=== PATIENT | female | born 1975 | race Two or more races ===

== ENCOUNTER 2023-08-10 20:28 | Emergency (ER) | payer MEDICAID ==
[~2023-08-10] VITALS: Ht 157.5 cm; Wt 65.1 kg
[2023-08-10] MEDS: ASPirin 81 mg TAB PO ONE (21:30)
[2023-08-10 22:12] LABS: Basophils # (auto) 0 10 ^3/uL (0-0.2); Basophils % (auto) 0.4 % (0.0-2.0); Eosinophils # (auto) 0.1 10 ^3/uL (0-0.8); Eosinophils % (auto) 0.9 % (0.0-7.0); Hematocrit 41.3 % (36.0-46.0); Hemoglobin 13.7 g/dL (12.2-16.2); Lymphocytes % (auto) 32.5 % (10.0-50.0); Mean Corpuscular Hemoglobin 30.7 pg (28.0-32.0); Mean Corpuscular Hgb Conc. 33.2 g/dL (32.0-36.0); Mean Corpuscular Volume 92.3 fL (80.0-100.0); Monocytes # (auto) 0.5 10 ^3/uL (0-1.3); Monocytes % (auto) 5.1 % (0.0-12.0); Neutrophils # (auto) 5.7 10 ^3/uL (1.6-8.6); Neutrophils % (auto) 61.1 % (37.0-80.0); Nucleated Red Blood Cells % 0.1 %; Red Blood Cells 4.47 10^6/uL (4.0-5.20); Red Cell Distribution Width 13.2 % (11.8-14.3); White Blood Cell 9.3 10^3/uL (4.4-10.8)
[2023-08-10 22:19] LABS: Alanine Aminotransferase 12 U/L (7-40); Albumin 4.9 g/dL (3.2-4.8); Alkaline Phosphatase 72 U/L (46-116); Anion Gap 7 (5-15); Aspartate Aminotransferase 10 U/L (13-40); Bilirubin, Total 0.6 mg/dL (0.2-1.0); Calcium 9.1 mg/dL (8.7-10.4); Carbon Dioxide 25 mmol/L (20-30); Chloride 106 mmol/L (98-107); Glucose 118 mg/dL (74-106); Lipase 44 U/L (12-53); Magnesium 2.2 mg/dL (1.6-2.6); Potassium 3.7 mmol/L (3.5-5.1); Sodium 138 mmol/L (136-145); Total Protein 7.6 g/dL (5.7-8.2)
[2023-08-10 22:40] LABS: BUN/Creatinine Ratio 9.1 (10.0-20.0); Blood Urea Nitrogen < 5 mg/dL (9-23)
[2023-08-11] MEDS: IOHEXOL 350 MG/ML 100ML IJ ONE (03:46)
[2023-08-11 04:02] LABS: Urine Bacteria NONE SEEN /hpf (None Seen); Urine Blood Negative /uL (Negative); Urine Clarity Clear (Clear); Urine Color Yellow (Yellow); Urine Protein, UAD TRACE (Negative); Urine Urobilinogen Normal (Negative); Urine WBC 1 /hpf (0 - 5); Urine pH 6.5 (5.0-8.0)
[2023-08-11 04:05] LABS: Urine Specific Gravity > 1.050 (1.001-1.035)
[2023-08-11] MEDS: KETOROLAC TROMETH 30 MG/ML 1ML VIAL IV ONE (07:32)
[2023-08-11] MEDS: SODIUM CHLORIDE 0.9% 1,000 ML IVB ONE (07:32)
[2023-08-11] MEDS: ONDANSETRON HCL 4 MG/2 ML VIAL IV ONE (07:32)
[2023-08-11 07:45] VITALS: BP 125/69; PULSE 71; RESP 16; TEMP 98; O2SAT 96
== END 2023-08-11 08:41 | disposition home or self-care (01) ==
LOC: ER 20:28
DX: R10.32 Left lower quadrant pain (principal); R10.2 Pelvic and perineal pain; R07.89 Other chest pain; Z79.899 Other long term (current) drug therapy
CPT/HCPCS: 36415; 71045; 74177; 80053; 81001; 83605; 83690; 83735; 84484; 84702; 85025; 87040; 87086; 96361; 96374; 96375; 99285; J1885; J2405; J7030; Q9967

== ENCOUNTER 2024-07-02 08:41 | Inpatient (IN) | payer MEDICAID ==
[~2024-07-02] VITALS: Ht 157.5 cm; Wt 67.6 kg
--- NOTE | 2024-07-02 09:36 | ED.PDOC ---
HPI (NEURO) HPI Comments 49 y.o female presents to the ED for a chief complaint of left sided arm and face numbness associated with left sided chest pressure that started 6 days ago but has progressively worsened. Patient reports symptoms started intermittently but last night became constant up until this morning, Patient denies slurred speech, focal weaknesses, vision changes, SOB, nausea, vomiting, or dizziness. Patient is able to ambulate without assistance. She denies any medical, surgical history or allergies. No substance, alcohol or tobacco use reported. Chief Complaint: Face pain Time Seen by MD: 09:13 Primary Care Provider: DARRION Reviewed Notes: Nurses Notes, Medications, Allergies Information Source: Patient Mode of Arrival: Ambulatory Severity: Moderate Timing: Days (6) Duration: Since onset Numbness Location: (L) Arm, Facial Onset: At rest Circumstances: Spontaneous Symptoms: Numbness History of: None Associated Signs and Symptoms: Chest Pain, Chest Pain, Numbness Past Medical History PAST MEDICAL HISTORY: Denies Surgical History: Denies all surgeries RESEARCH/PROGRAM DIRECTOR History: No Pertinent RESEARCH/PROGRAM DIRECTOR History Family History Family History: Unobtainable Social History Smoker: Non-Smoker Alcohol: Denies ETOH Use Drugs: Denies Drug Use Lives In: Home Constitutional: denies: chills, diaphoresis, fatigue, fever, malaise, sweats, weakness, others EENTM: denies: blurred vision, double vision, ear bleeding, ear discharge, ear drainage, ear pain, ear ringing, eye pain, eye redness, hearing loss, mouth pain, mouth swelling, nasal discharge, nose bleeding, nose congestion, nose pain, photophobia, tearing, throat pain, throat swelling, voice changes, others Respiratory: denies: cough, hemoptysis, orthopnea, SOB at rest, shortness of breath, SOB with excertion, stridor, wheezing, others Cardiovascular: reports: chest pain; denies: dizzy spells, diaphoresis, Dyspnea on exertion, edema, irregular heart beat, left arm pain, lightheadedness, palpitations, PND, syncope, others Gastrointestinal: denies: abdomen distended, abdominal pain, blood streaked bowels, constipated, diarrhea, dysphagia, difficulty swallowing, hematemesis, melena, nausea, poor appetite, poor fluid intake, rectal bleeding, rectal pain, vomiting, others Genitourinary: denies: abnormal vagina bleeding, burning, dyspareunia, dysuria, flank pain, frequency, hematuria, incontinence, pain, , vagina discharge, urgency, others Neurological: reports: numbness (left sided arm and face ); denies: dizziness, fainting, headache, left sided numbness, left sided weakness, paresthesia, pre- existing deficit, right sided numbness, right sided weakness, seizure, speech problems, tingling, tremors, weakness, others Musculoskeletal: denies: back pain, gout, joint pain, joint swelling, muscle pain, muscle stiffness, neck pain, others Integumetry: denies: bruises, change in color, change in hair/nails, dryness, laceration, lesions, lumps, rash, wounds, others Allergic/Immunocompromised: denies: Difficulty Healing, Frequent Infections, Hives, Itching, others Hematologic/Lymphatic: denies: anemia, blood clots, easy bleeding, easy bruising, swollen glands, others Endocrine: denies: excessive hunger, excessive sweating, excessive thirst, excessive urination, flushing, intolerance to cold, intolerance to heat, unexplained weight gain, unexplained weight loss, others Psychiatric: denies: anxiety, bipolar disorder, depression, hopeless, panic disorder, schizophrenia, sleepless, suicidal, others All Other Systems: Reviewed and Negative Physical Exam General Appearance: Moderate Distress HEENT: Normal ENT Inspection, Pharynx Normal, TMs Normal Neck: Full Range of Motion, Non-Tender, Normal, Normal Inspection Respiratory: Chest Non-Tender, Lungs Clear, No Accessory Muscle Use, No Respiratory Distress, Normal Breath Sounds Cardiovascular: No Edema, No JVD, No Murmur, No Gallop, Normal Peripheral Pulses, Regular Rate/Rhythm Breast Exam: Deferred Gastrointestinal: No Organomegaly, Non Tender, No Pulsatile Mass, Normal Bowel Sounds, Soft Genitalia: Deferred Pelvic: Deferred Rectal: Deferred Extremities: No calf tenderness, Normal capillary refill, Normal inspection, Normal range of motion, Non-tender, No pedal edema Musculoskeletal : Apperance: Normal Neurologic: Alert, supervisor refractory products II-XII nml as Tested, No Motor Deficits, Normal Affect, Normal Mood, No Sensory Deficits Cerebellar Function: Normal Reflexes: Normal Skin: Dry, Normal Color, Warm Peripheral Pulses: 3+ Radial (R), 3+ Radial (L) Lymphatic: No Adenopathy Was a procedure done? Was a procedure done?: No Differential Diagnosis (SZ) Seizure: Psychogenic Seizure, Closed Head Injury, CVA/TIA CVA: Tobias's Palsy, Delirium Tremens, Electrolyte Imbalance, Hypoglycemia, TIA X-Ray, Labs, Meds, VS Vital Signs Date Time Temp Pulse Resp B/P (MAP) Pulse Ox O2 Delivery O2 Flow Rate FiO2 07/02/24 10:00 77 07/02/24 10:00 97.7 77 18 151/94 (113) 98 97.7 07/02/24 09:00 85 07/02/24 08:58 99.0 84 18 153/90 (111) 98 Lab Test 07/02/24 10:08 07/02/24 09:14 Range/Units Urine Color Light-yellow Yellow Urine Clarity Clear Clear Urine pH 6.0 5.0-9.0 Urine Specific [place] 1.009 1.001-1.035 Urine Protein Negative Negative Urine Ketones Negative Negative Urine Blood Negative Negative /uL Urine Nitrite Negative Negative Urine Bilirubin Negative Negative Urine Urobilinogen Normal Negative mg/dL Urine Leukocyte Esterase Negative Negative /uL Urine RBC 2 0 - 4 /hpf Urine WBC 1 0 - 5 /hpf Urine Squamous Epithelial Cells Few <5 /hpf Urine Bacteria None seen None Seen /hpf Urine Glucose Normal Normal mg/dL White Blood Count 5.8 4.4-10.8 10^3/uL Red Blood Count 4.43 4.0-5.20 10^6/uL Hemoglobin 13.9 12.2-16.2 g/dL Hematocrit 40.8 36.0-46.0 % Mean Corpuscular Volume 92.1 80.0-100.0 fL Mean Corpuscular Hemoglobin 31.3 28.0-32.0 pg Mean Corpuscular Hemoglobin Concent 34.0 32.0-36.0 g/dL Red Cell Distribution Width 12.9 11.8-14.3 % Platelet Count 292 140-450 10^3/uL Mean Platelet Volume 8.6 6.9-10.8 fL Neutrophils (%) (Auto) 58.8 37.0-80.0 % Lymphocytes (%) (Auto) 35.5 10.0-50.0 % Monocytes (%) (Auto) 4.9 0.0-12.0 % Eosinophils (%) (Auto) 0.5 0.0-7.0 % Basophils (%) (Auto) 0.3 0.0-2.0 % Neutrophils # (Auto) 3.4 1.6-8.6 10 ^3/uL Lymphocytes # (Auto) 2.1 0.4-5.4 10 ^3/uL Monocytes # (Auto) 0.3 0-1.3 10 ^3/uL Eosinophils # (Auto) 0 0-0.8 10 ^3/uL Basophils # (Auto) 0 0-0.2 10 ^3/uL Nucleated Red Blood Cells 0.0 % Sodium Level 140 136-145 mmol/L Potassium Level 3.3 L 3.5-5.1 mmol/L Chloride Level 104 98-107 mmol/L Carbon Dioxide Level 25 20-31 mmol/L Anion Gap 11 5-15 Blood Urea Nitrogen 10 9-23 mg/dL Creatinine 0.76 0.550-1.02 mg/dL Glomerular Filtration Rate Calc 97 >90 mL/min BUN/Creatinine Ratio 13.2 10.0-20.0 Serum Glucose 161 H 74-106 mg/dL Calcium Level 10.0 8.7-10.4 mg/dL Troponin I High Sensitivity 4 </=34 ng/L Patient alert. Complaining of chest discomfort. EKG reviewed does not show any acute changes. Vitals stable. Blood sugar slightly elevated. Was told to drink plenty of fluids. WBC within normal limits. Hemoglobin within normal limits. Blood pressure slightly elevated. Continues to have chest discomfort. Has risk factors for coronary artery disease. Explained to the patient. Was given aspirin. Was given nitro. Continue cardiac monitoring. Time of 1ST Reevaluation: 09:34 Reevaluation 1ST: Unchanged Patient Education/Counseling: Diagnosis, Treatment, Prognosis Family Education/Counseling: No Family Present Additional Information I reviewed the following notes from patient's past medical encounters: 08/15/23- abdominal pain The following tests were ordered, and results were reviewed by me: LAB; Troponin x1, UA, CMP, CBC Additional Information was gathered from interviewing the following independent historians: None I reviewed and agreed with the following test results read by other providers: None I discussed treatment and results with medical personnel Departure 1 Departure Time of Disposition: 11:23 Impression: Primary Impression: Chest pain of unknown etiology Additional Impressions: HTN (hypertension) Qualified Codes: I10 - Essential (primary) hypertension Uncontrolled diabetes mellitus Qualified Codes: E13.65 - Other specified diabetes mellitus with hyperglycemia Disposition: ADMITTED INPATIENT Admit to: Med Surg Condition: Guarded Critical Care Note Critical Care Time?: Yes (45 min-critical care time only) Stability Stability form required: No Heart Score Heart Score: Heart Score Response (Comments) Value History Slightly Suspicious 0 EKG Normal 0 Age 45-64 1 Risk Factors 1 or 2 risk factors 1 Troponin Normal limit 0 Total 2 I personally scribed for ROYAL BETTS MD ([email or web address]) on 07/02/24 at 09:36. Electronically submitted by Vidhya Lobato ([facility]). ROYAL BETTS MD Jul 02, 2024 09:36
[2024-07-02 10:09] LABS: Urine Bacteria None Seen /hpf (None Seen)
[2024-07-02 10:44] LABS: Basophils # (auto) 0 10 ^3/uL (0-0.2); Basophils % (auto) 0.3 % (0.0-2.0); Eosinophils # (auto) 0 10 ^3/uL (0-0.8); Eosinophils % (auto) 0.5 % (0.0-7.0); Hematocrit 40.8 % (36.0-46.0); Hemoglobin 13.9 g/dL (12.2-16.2); Lymphocytes # (auto) 2.1 10 ^3/uL (0.4-5.4); Lymphocytes % (auto) 35.5 % (10.0-50.0); Mean Corpuscular Hemoglobin 31.3 pg (28.0-32.0); Mean Corpuscular Volume 92.1 fL (80.0-100.0); Monocytes # (auto) 0.3 10 ^3/uL (0-1.3); Monocytes % (auto) 4.9 % (0.0-12.0); Neutrophils # (auto) 3.4 10 ^3/uL (1.6-8.6); Neutrophils % (auto) 58.8 % (37.0-80.0); Platelet Count (auto) 292 10^3/uL (140-450); Red Blood Cells 4.43 10^6/uL (4.0-5.20); Red Cell Distribution Width 12.9 % (11.8-14.3); White Blood Cell 5.8 10^3/uL (4.4-10.8)
[2024-07-02 10:54] LABS: Chloride 104 mmol/L (98-107); Sodium 140 mmol/L (136-145)
[2024-07-02 10:55] LABS: Urine Blood Negative /uL (Negative); Urine Clarity Clear (Clear); Urine Color Light-Yellow (Yellow); Urine Protein, UAD Negative (Negative); Urine Specific Gravity 1.009 (1.001-1.035); Urine Squamous Epithelial Cell FEW /hpf (<5); Urine Urobilinogen Normal (Negative); Urine WBC 1 /hpf (0 - 5)
[2024-07-02 10:55] LABS: Anion Gap 11 (5-15); Carbon Dioxide 25 mmol/L (20-31)
[2024-07-02 11:00] LABS: BUN/Creatinine Ratio 13.2 (10.0-20.0); Blood Urea Nitrogen 10 mg/dL (9-23)
[2024-07-02 11:09] LABS: Glucose 161 mg/dL (74-106); Potassium 3.3 mmol/L (3.5-5.1)
[2024-07-02] MEDS: ASPirin 325 MG TAB PO ONE (12:19)
[2024-07-02] MEDS: NITROGLYCERIN 0.4 MG SL TAB SL ONE (12:20)
[2024-07-02] MEDS ORDERED: ONDANSETRON HCL 4 MG/2 ML VIAL IV PRN (12:30)
[2024-07-02] MEDS ORDERED: MORPHINE SULFATE INJ 2 MG/ml SYRG IV PRN (12:30)
[2024-07-02] MEDS ORDERED: NITROGLYCERIN 0.4 MG SL TAB SL PRN ×2 (12:30)
[2024-07-02] MEDS ORDERED: MORPHINE SULFATE 4 MG/ML SYR/VIAL IV PRN (12:30)
[2024-07-02] MEDS ORDERED: DEXTROSE (50%) 50ML SYRG IV PRN (12:45)
--- NOTE | 2024-07-02 12:45 | DVHHP2 ---
History of Present Illness Reason for Visit: Chest pain, face pain, left arm numbness and tingling History of Present Illness Mari Peralta is a 49-year-old female with no past medical history who presents to the ED today for face pain, chest pain, left arm pain and numbness x6 days. Patient reports that the pain is 6/10, is intermittent, is pressure- like in her chest and reports left arm and face tingling and numbness. Patient states that the pain has gotten progressively worse. Patient reports that she has not taken any pain medications at home also denies any recent trauma or injury. Patient denies drinking, smoking, illicit drug use, no surgical history, and no medical history. Patient reports that her primary advised her to watch her diet specifically sugars and fats because she is borderline. Patient denies shortness of breath, abdominal pain, nausea, vomiting, diarrhea, lightheadedness, dizziness, and headaches. Past Surgical History: None Family History: None Smoke: No ALCOHOL: none Drugs: None Lives: with Family Domestic Violence: Neg Review of Systems Constitutional: No: Fever, Chills, Sweats, Weakness, Malaise, Other Eyes: No: Pain, Vision change, Conjunctivae inflammation, Eyelid inflammation, Other, Redness ENT: No: Ear pain, Ear discharge, Nose pain, Nose discharge, Nose congestion, Mouth pain, Mouth swelling, Throat pain, Throat swelling, Other Respiratory: No: Cough, Dry, Shortness of breath, SOB with excertion, Wheezing, Hemoptysis, Pleuritic Pain, Sputum, Wheezing, Other Cardiovascular: No: Chest Pain, Palpitations, Orthopnea, Paroxysmal Noc. Dyspnea, Edema, Lt Headedness, Other Gastrointestinal: No: Nausea, Vomiting, Abdominal Pain, Diarrhea, Constipation, Melena, Hematochezia, Other Genitourinary: No Dysuria, No Frequency, No Incontinence, No Hematuria, No Retention, No Other Musculoskeletal: arm pain; No: other, neck pain, shoulder pain, back pain, hand pain, leg pain, foot pain Skin: No: Rash, Lesions, Jaundice, Bruising, Other Neurological: No: Weakness, Numbness, Incoordination, Change in speech, Confusion, Seizures, Other Other Left face pain Allergies: Coded Allergies: NO KNOWN ALLERGIES (Unverified , 02/03/13) Medications Current Medications Medications Dose Ordered Sig/Willam Route Start Time Stop Time Status Last Admin Dose Admin Hydralazine HCl 10 mg Q6HP PRN IV 07/02/24 12:30 UNV Aspirin 81 mg DAILY PO 07/03/24 10:00 UNV Atorvastatin Calcium 40 mg HS PO 07/02/24 22:00 UNV Morphine Sulfate 2 mg Q30MP PRN IV 07/02/24 12:30 UNV Acetaminophen 650 mg Q6HP PRN PO 07/02/24 12:30 UNV Nitroglycerin 0.4 mg Q5MINP PRN SL 07/02/24 12:30 UNV Ondansetron HCl 4 mg Q4HP PRN IV 07/02/24 12:30 UNV Nitroglycerin 0.4 mg Q5MINP PRN SL 07/02/24 12:30 UNV Exam Vital Signs Vital Signs Date Time Temp Pulse Resp B/P (MAP) Pulse Ox O2 Delivery O2 Flow Rate FiO2 07/02/24 12:20 154/91 07/02/24 12:20 90 20 98 07/02/24 10:00 97.7 97.7 General Appearance: Alert, Oriented X3, Cooperative, No acute distress HEENT: Atraumatic, PERRLA, EOMI, Mucous membr. moist/pink Respiratory: Clear to auscultation, Normal air movement Cardiovascular: Regular rate, Normal S1, Normal S2, No murmurs Abdominal: Normal bowel sounds, Soft, No tenderness, No hepatospenomegaly, No masses Extremities: No clubbing, No cyanosis, No edema, Normal pulses, No tenderness/swelling Skin: No rashes, No breakdown, No significant lesion Neuro: Normal gait, Normal speech, Strength at 5/5 X4 ext, Normal tone, Sensation intact Psych/Mental Status: Mental status NL, Mood NL Labs/Xrays Labs Test 07/02/24 10:08 07/02/24 09:14 Range/Units Urine Color Light-yellow Yellow Urine Clarity Clear Clear Urine pH 6.0 5.0-9.0 Urine Specific [place] 1.009 1.001-1.035 Urine Protein Negative Negative Urine Ketones Negative Negative Urine Blood Negative Negative /uL Urine Nitrite Negative Negative Urine Bilirubin Negative Negative Urine Urobilinogen Normal Negative mg/dL Urine Leukocyte Esterase Negative Negative /uL Urine RBC 2 0 - 4 /hpf Urine WBC 1 0 - 5 /hpf Urine Squamous Epithelial Cells Few <5 /hpf Urine Bacteria None seen None Seen /hpf Urine Glucose Normal Normal mg/dL White Blood Count 5.8 4.4-10.8 10^3/uL Red Blood Count 4.43 4.0-5.20 10^6/uL Hemoglobin 13.9 12.2-16.2 g/dL Hematocrit 40.8 36.0-46.0 % Mean Corpuscular Volume 92.1 80.0-100.0 fL Mean Corpuscular Hemoglobin 31.3 28.0-32.0 pg Mean Corpuscular Hemoglobin Concent 34.0 32.0-36.0 g/dL Red Cell Distribution Width 12.9 11.8-14.3 % Platelet Count 292 140-450 10^3/uL Mean Platelet Volume 8.6 6.9-10.8 fL Neutrophils (%) (Auto) 58.8 37.0-80.0 % Lymphocytes (%) (Auto) 35.5 10.0-50.0 % Monocytes (%) (Auto) 4.9 0.0-12.0 % Eosinophils (%) (Auto) 0.5 0.0-7.0 % Basophils (%) (Auto) 0.3 0.0-2.0 % Neutrophils # (Auto) 3.4 1.6-8.6 10 ^3/uL Lymphocytes # (Auto) 2.1 0.4-5.4 10 ^3/uL Monocytes # (Auto) 0.3 0-1.3 10 ^3/uL Eosinophils # (Auto) 0 0-0.8 10 ^3/uL Basophils # (Auto) 0 0-0.2 10 ^3/uL Nucleated Red Blood Cells 0.0 % Sodium Level 140 136-145 mmol/L Potassium Level 3.3 L 3.5-5.1 mmol/L Chloride Level 104 98-107 mmol/L Carbon Dioxide Level 25 20-31 mmol/L Anion Gap 11 5-15 Blood Urea Nitrogen 10 9-23 mg/dL Creatinine 0.76 0.550-1.02 mg/dL Glomerular Filtration Rate Calc 97 >90 mL/min BUN/Creatinine Ratio 13.2 10.0-20.0 Serum Glucose 161 H 74-106 mg/dL Calcium Level 10.0 8.7-10.4 mg/dL Troponin I High Sensitivity 4 </=34 ng/L Assessment/Plan Assessment/Plan Assessment/Plan: Atypical chest pain r/o ACS UA Nitro given in ER Aspirin given in ER Troponins negative EKG Echo UDS TSH Lipid panel ACS protocol Aspirin Statin Antihypertensive Chest x-ray Labs A.m. labs EKG a.m. Antiemetics Pain management Hyperglycemia Hemoglobin A1c ISS and Accu-Cheks Hypokalemia Replete lytes FEN/PPX cardiac diet hl DVT prophylaxis not indicated patient ambulating PUD prophylaxis not indicated patient no history of GERD or GI bleed No Home medications reconciled Discussed plan of care with patient and nurse Admit to tele Plan discussed with: Patient My Orders Orders - DARRELL LUCAS [place] AERONAUTICAL RESEARCH ENGINEER Procedure Category Date Status Time Chest Xray 1 View XY 07/02/24 Logged 12:21 Hydralazine Injection PHA 07/02/24 Logged (Apresoline Inject 12:30 Thyroid Stimulating LAB 07/02/24 Transmitted Hormone 12:22 Lipid Panel LAB 07/02/24 Transmitted 12:22 Drug Screen LAB 07/02/24 Transmitted 12:22 Echo 2d Mode Cardiac US 07/02/24 Logged DOP 12:22 Admit ADMIT 07/02/24 Transmitted 12:22 Code Status CODE 07/02/24 Transmitted 12:22 Vital Signs JER 07/02/24 In Process 12:22 Landscape Architecture Teacher JER 07/02/24 In Process 12:22 Cardiac DIET 07/02/24 Transmitted Diet-2gna,Lofat,Lochol Lunch Aspirin Tablet PHA 07/03/24 Logged 10:00 Atorvastatin (Lipitor) PHA 07/02/24 Logged 22:00 Morphine Sulfate PHA 07/02/24 Logged Injection 12:30 Acetaminophen Tablet PHA 07/02/24 Logged (Tylenol Tablet) 12:30 Complete Blood Count LAB 07/03/24 Verified 04:00 Comprehensive LAB 07/03/24 Verified Metabolic Panel 04:00 Nitroglycerin PHA 07/02/24 Logged Sublingual (Ntrostat 12:30 Ondansetron Hcl PHA 07/02/24 Logged (Zofran) 12:30 Electrocardigram EKG 07/03/24 Logged 04:00 Troponin-I Hs LAB 07/02/24 Transmitted 12:22 Cardiac JER 07/02/24 Transmitted Rehabilitation - Outpa Nitroglycerin PHA 07/02/24 Transmitted Sublingual (Ntrostat 12:30 Morphine Sulfate PHA 07/02/24 Transmitted Injection 12:30 Stat Ekg For Chest [facility] 07/02/24 Transmitted Pain 12:22 Notify Md Of Changes [facility] 07/02/24 Transmitted From Base 12:22 Rn Digestive For [facility] 07/02/24 Transmitted 24 Hours 12:22 Emergency Dysrhythmia [facility] 07/02/24 Transmitted Protocol 12:22 Rhythm Strips Once [facility] 07/02/24 Transmitted Every Shift 12:22 Oxygen By Nasal RT 07/02/24 Transmitted Cannula 12:22 Potassium Er Tablet [facility] 07/02/24 Transmitted (Klor-Con Tablet) 12:30 Date of Service: Jul 02, 2024 Billing Provider: DARRELL LUCAS Common Visit Codes: [id number] INP/OBS CARE (HIGH) DARRELL LUCAS Jul 02, 2024 12:45
--- NOTE | 2024-07-02 13:26 | DVH ---
EXAM: XY CHEST XRAY 1 VIEW TECHNIQUE: Single frontal chest radiograph CLINICAL HISTORY: chest pain COMPARISON: XY CHEST PORTABLE on DOS: 08/10/23 Findings/Impression: Frontal chest radiograph demonstrates no acute osseous or superficial soft tissue abnormalities. The trachea is midline. The cardiac silhouette and mediastinum are within normal limits. No pneumothorax, pleural effusions, or consolidations.
[2024-07-02] MEDS: POTASSIUM CHL 20 Meq TABLET PO ONE (13:45)
[2024-07-02 13:48] VITALS: BP 168/94; PULSE 74; RESP 17; TEMP 98.3; O2SAT 99
[2024-07-02 14:19] LABS: Amphetamine Screen, Urine Neg (NEGATIVE); Barbiturate Scree,Urine Neg (NEGATIVE); Benzodiazephine Screen, Urine Neg (NEGATIVE); Cocaine Screen, Urine Neg (NEGATIVE); Opiate Scree,Urine Neg (NEGATIVE); Phencyclidine Screen, Urine Neg (NEGATIVE)
[2024-07-02 14:20] LABS: Cannabinoid Screen, Urine Neg (NEGATIVE)
[2024-07-02 14:22] LABS: LDL Cholesterol 91 mg/dL (< 100)
[2024-07-02 14:23] LABS: Cholesterol 148 mg/dL (< 200); HDL Cholesterol 54 mg/dL (40-59)
[2024-07-02 14:27] LABS: Triglycerides 151 mg/dL (< 150)
[2024-07-02] MEDS: hydrALAZINE HCL 20 MG/ML VL IV PRN (15:56)
[2024-07-02 17:01] VITALS: BP 168/94; PULSE 74; RESP 18; TEMP 98.3; O2SAT 97; O2SAT 99
[2024-07-02] MEDS: ACCU-CHEK COMFORT CURVE STRIP VI SCH (17:54)
[2024-07-02] MEDS: InsuLIN REG 1unit/0.01ml Soln (100units/ml) SC SCH (17:58)
[2024-07-02] MEDS: ACETAMINOPHEN 325 MG TAB PO PRN (20:43)
[2024-07-02] MEDS: ATORVASTATIN 20 MG TAB PO SCH (23:00)
[2024-07-03 01:14] VITALS: PULSE 87; RESP 16; O2SAT 96
[2024-07-03 04:32] LABS: Basophils # (auto) 0 10 ^3/uL (0-0.2); Basophils % (auto) 0.2 % (0.0-2.0); Eosinophils # (auto) 0 10 ^3/uL (0-0.8); Eosinophils % (auto) 0.5 % (0.0-7.0); Hematocrit 39.4 % (36.0-46.0); Hemoglobin 13.6 g/dL (12.2-16.2); Lymphocytes # (auto) 3.6 10 ^3/uL (0.4-5.4); Lymphocytes % (auto) 37.7 % (10.0-50.0); Mean Corpuscular Hemoglobin 31.5 pg (28.0-32.0); Mean Corpuscular Hgb Conc. 34.4 g/dL (32.0-36.0); Mean Corpuscular Volume 91.4 fL (80.0-100.0); Monocytes # (auto) 0.6 10 ^3/uL (0-1.3); Monocytes % (auto) 5.9 % (0.0-12.0); Neutrophils # (auto) 5.4 10 ^3/uL (1.6-8.6); Neutrophils % (auto) 55.7 % (37.0-80.0); Platelet Count (auto) 299 10^3/uL (140-450); Red Blood Cells 4.31 10^6/uL (4.0-5.20); Red Cell Distribution Width 12.9 % (11.8-14.3); White Blood Cell 9.7 10^3/uL (4.4-10.8)
[2024-07-03 04:50] LABS: Alanine Aminotransferase 18 U/L (7-40); Alkaline Phosphatase 69 U/L (46-116); Anion Gap 10 (5-15); BUN/Creatinine Ratio 14.3 (10.0-20.0); Blood Urea Nitrogen 10 mg/dL (9-23); Carbon Dioxide 25 mmol/L (20-31); Chloride 103 mmol/L (98-107); Potassium 3.8 mmol/L (3.5-5.1); Sodium 138 mmol/L (136-145)
[2024-07-03 04:51] LABS: Albumin 4.6 g/dL (3.2-4.8); Aspartate Aminotransferase 14 U/L (13-40); Bilirubin, Total 0.7 mg/dL (0.2-1.0); Glucose 112 mg/dL (74-106)
[2024-07-03 04:52] LABS: Total Protein 7.3 g/dL (5.7-8.2)
[2024-07-03 07:30] VITALS: PULSE 57
[2024-07-03 09:00] VITALS: BP 128/71; PULSE 90; RESP 16; TEMP 98.1; O2SAT 97
[2024-07-03] MEDS: ASPirin 81 mg TAB PO SCH (10:45)
[2024-07-03 13:35] VITALS: BP 129/84; PULSE 86; RESP 17; TEMP 98; O2SAT 93
--- NOTE | 2024-07-03 14:21 | DVHSR ---
APPROVED REPORT EXAM: LIMITED Two-dimensional and M-mode echocardiogram with Doppler and color Doppler. Blood Pressure: 122/74 mmHg INDICATION Chest Pain RISK FACTORS Height: 5' 2", Weight: 149 DIMENSIONS LVDd4.3 (3.8-5.7cm)LA (2D)3.6 (1.9-4.0cm)Aortic Root2.6 (2.0-3.7cm) LVDs2.9 (2.5-4.0cm)LA (MM) (1.9-4.0cm)Aortic Cusp Exc1.7 (1.5-2.0cm) EF (%) 60.0 (55-70%)Rt. Atrium3.0 (1.9-4.0cm)Asc. Aorta cm IVSd0.9 (0.7-1.1cm)RV (D) (1.8-2.4cm) PWd0.9 (0.7-1.1cm) Mitral Valve MitralMitral Stenosis E wave0.80m/sMV Mean GR.mmHg A wave0.80m/sMV Peak GR.mmHg E/A ratio1.02D MVAcm2 Aortic Valve Aortic ValveAortic Stenosis V11.00m/Katya Mean GR.5mmHg V21.40m/Katya Peak GR.9mmHg LVOT Diameter1.8 (1.8-2.4cm)Doppler AVA1.82cm2 Pulmonic Valve V20.90m/s LEFT VENTRICLE The left ventricle is normal size. There is normal left ventricular wall thickness. The left ventricle is normal in structure and function, LVEF is 65%. Normal diastolic function. Normal wall motion. RIGHT VENTRICLE The right ventricle is normal size. The right ventricular systolic function is normal. ATRIA The left atrial size is normal. The right atrium size is normal. MITRAL VALVE The mitral valve is grossly normal. There is no mitral valve regurgitation noted. PULMONIC VALVE The pulmonic valve is not well visualized. There is trace pulmonic valvular regurgitation. TRICUSPID VALVE The tricuspid valve is grossly normal. No tricuspid regurgitation. AORTIC VALVE The aortic valve is trileaflet. No aortic regurgitation is present. GREAT VESSELS The aortic root is normal size. PERICARDIAL EFFUSION No evidence of pericardial effusion. Other Information Quality : Technically LimitedRhythm : Technically limited study due to body habitus. Conclusion The left ventricle is normal size. There is normal left ventricular wall thickness. The left ventricl e is normal in structure and function, LVEF is 65%. Normal diastolic function. Normal wall motion. The right ventricular systolic function is normal. The left and right atrial size is normal. No significant valvular abnormalities. No evidence of pericardial effusion.
--- NOTE | 2024-07-03 16:19 | DVHDS2 ---
Discharge Summary Date of Admission Jul 02, 2024 at 12:22 Date of Discharge: Jul 03, 2024 Labs/Diagnostic Data: Laboratory Results Test 07/03/24 03:44 07/02/24 12:54 07/02/24 10:08 07/02/24 09:14 White Blood Count 9.7 10^3/uL (4.4-10.8) Red Blood Count 4.31 10^6/uL (4.0-5.20) Hemoglobin 13.6 g/dL (12.2-16.2) Hematocrit 39.4 % (36.0-46.0) Mean Corpuscular Volume 91.4 fL (80.0-100.0) Mean Corpuscular Hemoglobin 31.5 pg (28.0-32.0) Mean Corpuscular Hemoglobin Concent 34.4 g/dL (32.0-36.0) Red Cell Distribution Width 12.9 % (11.8-14.3) Platelet Count 299 10^3/uL (140-450) Mean Platelet Volume 8.2 fL (6.9-10.8) Neutrophils (%) (Auto) 55.7 % (37.0-80.0) Lymphocytes (%) (Auto) 37.7 % (10.0-50.0) Monocytes (%) (Auto) 5.9 % (0.0-12.0) Eosinophils (%) (Auto) 0.5 % (0.0-7.0) Basophils (%) (Auto) 0.2 % (0.0-2.0) Neutrophils # (Auto) 5.4 10 ^3/uL (1.6-8.6) Lymphocytes # (Auto) 3.6 10 ^3/uL (0.4-5.4) Monocytes # (Auto) 0.6 10 ^3/uL (0-1.3) Eosinophils # (Auto) 0 10 ^3/uL (0-0.8) Basophils # (Auto) 0 10 ^3/uL (0-0.2) Nucleated Red Blood Cells 0.0 % Sodium Level 138 mmol/L (136-145) Potassium Level 3.8 mmol/L (3.5-5.1) Chloride Level 103 mmol/L (98-107) Carbon Dioxide Level 25 mmol/L (20-31) Anion Gap 10 (5-15) Blood Urea Nitrogen 10 mg/dL (9-23) Creatinine 0.70 mg/dL (0.550-1.02) Glomerular Filtration Rate Calc 107 mL/min (>90) BUN/Creatinine Ratio 14.3 (10.0-20.0) Serum Glucose 112 mg/dL (74-106) Calcium Level 10.0 mg/dL (8.7-10.4) Total Bilirubin 0.7 mg/dL (0.2-1.0) Aspartate Amino Transferase (AST) 14 U/L (13-40) Alanine Aminotransferase (ALT) 18 U/L (7-40) Alkaline Phosphatase 69 U/L (46-116) Total Protein 7.3 g/dL (5.7-8.2) Albumin 4.6 g/dL (3.2-4.8) Troponin I High Sensitivity < 3 ng/L (</=34) Urine Color Light-yellow (Yellow) Urine Clarity Clear (Clear) Urine pH 6.0 (5.0-9.0) Urine Specific [place] 1.009 (1.001-1.035) Urine Protein Negative (Negative) Urine Ketones Negative (Negative) Urine Blood Negative /uL (Negative) Urine Nitrite Negative (Negative) Urine Bilirubin Negative (Negative) Urine Urobilinogen Normal mg/dL (Negative) Urine Leukocyte Esterase Negative /uL (Negative) Urine RBC 2 /hpf (0 - 4) Urine WBC 1 /hpf (0 - 5) Urine Squamous Epithelial Cells Few /hpf (<5) Urine Bacteria None seen /hpf (None Seen) Urine Glucose Normal mg/dL (Normal) Urine Opiates Screen Neg (NEGATIVE) Urine Fentanyl Screen Neg (NEGATIVE) Urine Barbiturates Screen Neg (NEGATIVE) Urine Phencyclidine Screen Neg (NEGATIVE) Urine Amphetamines Screen Neg (NEGATIVE) Urine Benzodiazepines Screen Neg (NEGATIVE) Urine Cocaine Screen Neg (NEGATIVE) Urine Cannabinoids Screen Neg (NEGATIVE) Hemoglobin A1c 5.7 % A1C (<5.7) Triglycerides Level 151 mg/dL (< 150) Cholesterol Level 148 mg/dL (< 200) LDL Cholesterol 91 mg/dL (< 100) HDL Cholesterol 54 mg/dL (40-59) Thyroid Stimulating Hormone (TSH) 0.86 uIU/mL (0.55-4.78) Other Laboratory Tests 07/03/24 03:44 Brief Hx & Hospital Course: 49-year-old female with a no significant past medical history initially presented to hospital with chest pain which was atypical. Patient admitted to tele floor. Troponins were negative x3. Twelve lead EKG shows normal sinus rhythm without any specific STT wave changes. 2D echo was done which shows normal functioning of systolic and diastolic. Patient is being discharged under stable condition. Condition at Discharge: Stable Final Diagnosis/Problems List Chest pain CO ruled out Left arm numbness and pain resolved Discharge Disposition: Home SNF Discharge Will this Physician continue t: No Discharge Instruct/Medications Diet: Regular Activity: No Restrictions, As Tolerated Follow Up/Referral: Follow up with the PCP in 1-2 weeks Medications: None Discharge Statement: "Patient was advised to return to the ER or call 911 if any headaches, dizziness, shortness of breath, chest pain, abdominal pain, bleeding, fevers, or worsening of medical condition. Patient was counseled about treatment plan, medications, possible side effects, patientverbalized understanding. All questions were answered to the best of my ability. This discharge took greater then 30 minutes in planning, reviewing documentation, counseling the patient, and discussing with other team members." ASSESSMENT ASSESSMENT Assessment Chest pain CO ruled out Left arm numbness and pain resolved Date of Service: Jul 03, 2024 Billing Provider: JONE BOO MD Common Visit Codes: 56274-HUL/OBS DISCH DAY <30MIN JONE BOO MD Jul 03, 2024 16:19
[2024-07-03 16:56] VITALS: BP 122/80; TEMP 36.7
[2024-07-03 17:21] VITALS: BP 122/80; PULSE 75; RESP 15; TEMP 98.3; O2SAT 96
--- NOTE | 2024-07-06 14:31 | ECG ---
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
== END 2024-07-03 17:15 | disposition home or self-care (01) | DRG 203 ==
LOC: ER 08:41 → TELE 12:22 → TELE-EAST 07-03 05:02
DX: M94.0 Chondrocostal junction syndrome [Tietze] (principal); E11.65 Type 2 diabetes mellitus with hyperglycemia; R20.0 Anesthesia of skin; I10 Essential (primary) hypertension; E87.6 Hypokalemia
CPT/HCPCS: 36415; 71045; 80048; 80053; 80061; 80307; 81001; 82962; 83036; 84443; 84484; 85025; 93005; 93306; 99291; G0378; J1815